=== PATIENT | male | born 1945 ===

== ENCOUNTER 2021-03-28 11:03 | Day surgery (SDC) | payer BC ==
[~2021-03-28] VITALS: Ht 182.9 cm; Wt 103.2 kg
[~2021-03-28 11:03] MED LIST: ALLO300 PO; ATOR10 PO
[2021-03-28] MEDS ORDERED: Aspir 8181 MG (12:14)
[2021-03-28] MEDS ORDERED: FISH OIL-VIT D1 EACH (12:15)
--- NOTE | 2021-03-28 13:10 | NUR ---
03/28/21 1310 KADEN GIORDANO 3 ATTEMTPTS AT IV. FIRST ATTEMPT IN R HAND BY MA MISSED. SECOND ATTEMPT BY RN IN L HAND MISSED. THIRD ATTEMPT BY RN IN R AC SUCCESSFUL.
== END 2021-03-28 14:30 | disposition home or self-care (01) ==
LOC: ORSCSDS 11:03
DX: Z12.11 Encounter for screening for malignant neoplasm of colon (principal); D12.2 Benign neoplasm of ascending colon; D12.4 Benign neoplasm of descending colon; K57.30 Diverticulosis of large intestine without perforation or abscess without bleeding; Z86.010 Personal history of colon polyps; Z79.899 Other long term (current) drug therapy
CPT/HCPCS: 88305; J0330; J0461; J2405; J2704; J7120

== ENCOUNTER 2024-05-24 06:25 | Day surgery (SDC) | payer BC ==
[~2024-05-24] VITALS: Ht 182.9 cm; Wt 103.4 kg
[~2024-05-24 06:25] MED LIST changes: +Aspir 8181 MG; +Balanced Salt Epinephrine Irrigation Solution 500 mL IR SCH; +FISH OIL-VIT D1 EACH; +Lidocaine HCl/Pf 1% 5 ML VIAL XX SCH; +Moxifloxacin HCL 0.5 MG/0.1 ML 0.4MLSYR RIGHTEYE SCH; +PHENYLEPHRINE\\TROPICAMIDE\\TETRACAINE OPHTHALMIC DILATING SOLN RIGHTEYE PRN; +Povidone-Iodine 450 DROP/30 ML Solution ONE; +Povidone-Iodine 450 DROP/30 ML Solution RIGHTEYE SCH; +Tetracaine HCl/Pf 0.5% Opth Soln 4 ml ONE; +Triamcinolone Inj Susp 40 MG / ML 1ML Vial INJ SCH
[2024-05-24] MEDS ORDERED: Lidocaine HCl/Pf 1% 5 ML VIAL ONE (06:29)
[2024-05-24] MEDS ORDERED: Triamcinolone Inj Susp 40 MG / ML 1ML Vial ONE (06:29)
[2024-05-24] MEDS ORDERED: Diazepam 2 MG Tab ONE (06:51)
[2024-05-24] MEDS ORDERED: Diazepam 5 MG Tab ONE (06:52)
--- NOTE | 2024-05-24 07:04 | NUR ---
05/24/24 0704 Arianna Gale 7 MG PO VALIUM GIVEN PER ORDERS AT 0704
[2024-05-24] MEDS ORDERED: TUMERIC (07:06)
[2024-05-24] MEDS ORDERED: MULTIVITAMIN (07:06)
[2024-05-24] MEDS ORDERED: HydrALAZINE HCl 20 MG / ML 1ML Vial ONE (07:57)
[2024-05-24 08:17] VITALS: BP 165/84
--- NOTE | 2024-05-24 08:18 | NUR ---
05/24/[address] IN TO SPEAK WITH PT. BP (SYSTOLIC) ELEVATED DURING SURGERY. HYDRALIZINE WAS GIVEN TO DECREASE BP. BP IS BACK TO BASELINE. HE INFORMED PT TO BE CAREFUL FOR THE NEXT SEVERAL HOURS AND TO CONTACT HIS PCP RE: BP/ELEVATION
== END 2024-05-24 08:29 | disposition home or self-care (01) ==
LOC: ORSCSDS 06:25
PROVIDERS: Ophthalmology
PROC: 08RJ3JZ Replacement of Right Lens with Synthetic Substitute, Percutaneous Approach (ICD-10-PCS; principal; 2024-05-24 08:00)
DX: H25.813 Combined forms of age-related cataract, bilateral (principal); E78.5 Hyperlipidemia, unspecified; I10 Essential (primary) hypertension; Z79.899 Other long term (current) drug therapy
CPT/HCPCS: A9270; J0360; J2003; J3301; V2632

== ENCOUNTER 2024-05-31 06:24 | Day surgery (SDC) | payer BC ==
[~2024-05-31] VITALS: Ht 182.9 cm; Wt 104.4 kg
[~2024-05-31 06:24] MED LIST changes: +MULTIVITAMIN; +Moxifloxacin HCL 0.5 MG/0.1 ML 0.4MLSYR LEFTEYE SCH; -Moxifloxacin HCL 0.5 MG/0.1 ML 0.4MLSYR RIGHTEYE SCH; +PHENYLEPHRINE\\TROPICAMIDE\\TETRACAINE OPHTHALMIC DILATING SOLN LEFTEYE PRN; -PHENYLEPHRINE\\TROPICAMIDE\\TETRACAINE OPHTHALMIC DILATING SOLN RIGHTEYE PRN; +Povidone-Iodine 450 DROP/30 ML Solution LEFTEYE SCH; -Povidone-Iodine 450 DROP/30 ML Solution RIGHTEYE SCH; +TUMERIC
[2024-05-31] MEDS ORDERED: Triamcinolone Inj Susp 40 MG / ML 1ML Vial ONE (06:39)
[2024-05-31] MEDS ORDERED: Diazepam 2 MG Tab ONE (06:50)
[2024-05-31] MEDS ORDERED: Diazepam 5 MG Tab ONE (06:53)
[2024-05-31] MEDS ORDERED: AMLODIPINE BES2.5 MG (07:07)
[2024-05-31 08:19] VITALS: BP 159/70
--- NOTE | 2024-05-31 08:19 | NUR ---
05/31/24 0819 Jacque Devi NO QUESTIONS OR CONCERNS. APPT TODAY AT 1300
== END 2024-05-31 08:18 | disposition home or self-care (01) ==
LOC: ORSCSDS 06:24
PROVIDERS: Ophthalmology
PROC: 08RK3JZ Replacement of Left Lens with Synthetic Substitute, Percutaneous Approach (ICD-10-PCS; principal; 2024-05-31 08:00)
DX: H25.812 Combined forms of age-related cataract, left eye (principal); Z96.1 Presence of intraocular lens; I10 Essential (primary) hypertension; M10.9 Gout, unspecified; Z79.82 Long term (current) use of aspirin; Z79.899 Other long term (current) drug therapy
CPT/HCPCS: A9270; J3301; V2632